=== PATIENT | male | born 1955 | race Caucasian/White ===

== ENCOUNTER 2018-10-15 10:00 | Inpatient (IN) ==
[2018-10-15] MEDS ORDERED: NS 1,000 ML IV ONE (10:18)
[2018-10-15] MEDS ORDERED: DEMEROL IV ONE ×2 (11:02→15:14)
[2018-10-15] MEDS ORDERED: PHENERGAN IV ONE ×2 (11:04→15:14)
[2018-10-15] MEDS ORDERED: SODIUM CHLORIDE 0.9% INJ ONE ×2 (11:04→15:14)
--- NOTE | 2018-10-15 11:11 | Diag Imaging Result Doc PS360 ---
EXAM: FLAT/UPRIGHT ABD/1 VIEW CHEST INDICATION: abdominal pain TECHNIQUE: 4 views COMPARISON: Chest radiograph dated 02/04/2016 FINDINGS: There are nonspecific bowel gas and stool patterns. There is patchy small bowel gas throughout the abdomen. It does not appear to be overdistended. There is nothing that would necessarily indicate obstruction. Patchy stool is seen throughout the colon. There is no evidence of large volume free abdominal gas. There is evidence of prior granulomatous disease, stable. The lungs are grossly clear. There is no discrete pleural fluid collection or pneumothorax. The cardiomediastinal silhouette and central vasculature are grossly unremarkable. IMPRESSION: Nonspecific abdomen. Electronically signed by Francisco Taylor 10/15/2018 11:09 AM
[2018-10-15 11:17] LABS: AGAP 14; ALB/GLOB RATIO 0.9; ALBUMIN 3.7 g/dL (3.5-5.0); ALKALINE PHOSPHATASE 189 U/L (32-122); BUN 17 mg/dL (8-22); CALCIUM 9.6 mg/dL (8.8-10.2); CHLORIDE 102 mmol/L (98-107); COSMO 280; ESTIMATED GFR > 60; GLUCOSE 212 mg/dL (70-104); GOT 25 U/L (10-34); GPT 33 U/L (10-44); POTASSIUM 4.6 mmol/L (3.5-5.1); SODIUM 136 mmol/L (136-145); TCO2 20 mmol/L (25-35); TOTAL BILIRUBIN 1.29 mg/dL (0.20-1.00); TOTAL PROTEIN 7.8 g/dL (6.3-8.3)
[2018-10-15 11:57] LABS: BASO# 0.04 X1000 (0.0-0.2); BASO% 0.6 % (0.0-0.8); EOS% 1.5 % (0.0-10.0); HEMATOCRIT 49.1 % (42.0-52.0); HEMOGLOBIN 17.1 g/dL (14.0-18.0); LYMPH# 1.68 X1000 (1.2-3.4); LYMPH% 24.5 % (20.5-51.1); MCH 30.6 PG (27-31); MCHC 34.8 g/dL (33-37); MCV 87.8 FL (81-99); MONO# 0.62 X1000 (0.11-0.59); MPV 12.2 FL (7.4-10.4); NEUT# 4.43 X1000 (1.4-6.5); NEUT% 64.4 % (42.2-75.2); PLT 81 X1000 (130-400); RBC 5.59 XMIL (4.7-6.1); RDW 13.8 % (11.5-14.5); WBC 6.87 X1000 (4.8-10.8)
[2018-10-15 12:18] LABS: URINE SOURCE CLEAN CATCH
[2018-10-15 12:34] LABS: BILIRUBIN URINE NEGATIVE (NEGATIVE); BLOOD URINE NEGATIVE (NEGATIVE); COLOR YELLOW; GLUCOSE URINE NEGATIVE (NEGATIVE); KETONE URINE NEGATIVE (NEGATIVE); LEUKOCYTES URINE NEGATIVE (NEGATIVE); NITRITE URINE NEGATIVE (NEGATIVE); PH URINE 6.5; PROTEIN URINE NEGATIVE (NEGATIVE); SP GRAVITY URINE 1.019; TURBIDITY URINE CLEAR (CLEAR); UROBILINOGEN URINE NORMAL (NORMAL)
[2018-10-15 12:35] LABS: UR EPITHELIAL CELLS <10 /HPF (<10); URINE BACTERIA NEGATIVE /HPF; URINE RBC <10 /HPF (<10); URINE WBC <10 /HPF (<10)
--- NOTE | 2018-10-15 14:10 | Diag Imaging Result Doc PS360 ---
EXAM: CT ABD/PELVIS W/IV CONT ONLY INDICATION: abd pain TECHNIQUE: This exam was performed using automated exposure control, adjustment of mA or kV according to patient size, and/or use of iterative reconstruction technique. COMPARISON: None. FINDINGS: There are calcified granulomata at the lung bases. The contour of the liver is diffusely nodular suggesting cirrhosis. No discrete hepatic mass is identified. The spleen is enlarged measuring up to 16.1 cm in craniocaudal length. The gallbladder is distended and there is subtle stranding at the periphery of the gallbladder. This is suspicious for cholecystitis. Please correlate with clinical exam. There is no significant biliary dilatation. No radiopaque stones are identified. The pancreas, adrenal glands, kidneys, and urinary bladder are unremarkable. The GI tract is essentially unremarkable with no focal bowel wall thickening and no evidence of bowel obstruction. There is extensive aortoiliac atherosclerotic calcification. Lumbar fusion hardware is noted. The bony structures are grossly intact. IMPRESSION: 1.Subtle inflammatory stranding around the gallbladder that is suspicious for cholecystitis. 2.Cirrhotic liver. 3.Splenomegaly. 4.Other incidental/nonacute findings detailed above. Electronically signed by Francisco Taylor 10/15/2018 2:08 PM
[2018-10-15] MEDS ORDERED: ZOSYN 3.375 GM in NS 50 ML IV ONE (14:53)
--- NOTE | 2018-10-15 15:07 | PROVIDER DOCUMENTATION ---
This chart was entered by Marge Denise Scribe, acting as scribe for Tarun Bermudez DO. HPI-Abdominal Pain/GI Problem - General Chief Complaint: Abdominal Pain Stated Complaint: KNOT ON STOMACH Time Seen by Provider: 10/15/18 10:10 Source: patient Allergies/Adverse Reactions: Patient Allergies Allergy/AdvReac Type Severity Reaction Status Date / Time No Known Allergies Allergy Verified 01/08/14 13:44 Home Medications: Home Medication List Medication Instructions Recorded Confirmed Last Taken Type Amlodipine Besylate [Norvasc] 10 mg PO DAILY 01/08/14 10/15/18 01/08/14 05:00 History Aspirin 81 mg PO DAILY 01/08/14 10/15/18 01/08/14 05:00 History Clopidogrel Bisulfate [Plavix] 75 mg PO QAM 01/08/14 10/15/18 01/08/14 05:00 History PRAVAstatin [Pravachol] 40 mg PO QHS 01/08/14 10/15/18 01/07/14 19:00 History Ramipril [Altace] 10 mg PO BID 01/08/14 01/08/14 01/08/14 05:00 History - History of Present Illness-ABD Nature of Presenting Problems: 63 y/o male presents to ED with worsening R sided abdominal pain onset 2 weeks ago. Pt reports nausea and constipation over the past 2 days. Pt states he was seen at walk in clinic recently. Pt is alert and oriented. He has a history of coronary stents several years ago. A stroke last March and several years ago Abdominal Pain Onset Location: reports: other (R sided) Pain Radiation: reports: no radiation Quality of Pain: reports: burning, stabbing Severity in ED: reports: moderate Onset/Duration: reports: other (2 weeks ago) Timing: reports: still present Activities at Onset: reports: none Exposure to sick contacts?: No Modifying Factors: worse with: movement, palpation Associated Symptoms: reports: constipation, nausea, other (R sided abdominal pain) Last BM: 2 days ago Dark Stools Present?: reports: none noticed Rectal Bleeding: reports: none Rectal Pain: reports: none Similar Symptoms Previously?: No Recently seen or treated by another doctor?: Yes (walk in clinic) Review of Systems - Adult - REVIEW OF SYSTEMS - ADULT Constitutional: denies: chills, fever Eyes: reports: no symptoms reported Ears, Nose, Mouth & Throat: reports: no symptoms reported Cardiovascular: denies: chest pain, palpitations Respiratory: denies: cough, shortness of breath Gastrointestinal: reports: abdominal pain, constipation, nausea. denies: di arrhea, vomiting Genitourinary: reports: no symptoms reported Musculoskeletal: denies: back pain, joint pain Integumentary: reports: no symptoms reported Neurological: denies: dizziness/vertigo, seizure Psychiatric: reports: no symptoms reported Endocrine: reports: no symptoms reported Hematologic/Lymphatic: reports: no symptoms reported Allergic/Immunologic: reports: no symptoms reported All Other Systems: Reviewed and Negative Past History - Adult - PAST MEDICAL HISTORY-ADULT Review of Records: reports: Old Records Reviewed, Nursing Assessment Review, Medications Reviewed Major Childhood Illnesses: reports: denies history Cardiovascular: reports: CAD, HTN, hyperlipidemia Respiratory: reports: denies history Gastrointestinal: reports: denies history Obstetrical/Gynecological: reports: denies history Genitourinary: reports: denies history Musculoskeletal: reports: denies history Neurological: reports: CVA Endocrine/Immune: reports: Diabetes Other Conditions: reports: denies history - PRIOR SURGERIES/PROCEDURES Surgical/Procedure History: reports: reviewed, not pertinent, appendectomy, back/neck (back) - PRIOR HOSPITALIZATIONS Prior Hospitalizations: reports: for other non-related - IMMUNIZATION STATUS Childhood Immunizations: See Nurse Assessment Flu Vaccine: See Nurse Assessment - FAMILY HISTORY Family History: reviewed, not pertinent - SOCIAL HISTORY Smoking: less than 1 pack/day Provider spent 3-5 mins advising pt. on dangers of tobacco.: Discussed manners to quit use, and f/u contacts for add'l counseling. Substance Use: none/never Alcohol Use Frequency: never Living Situation: family Physical Exam-General - PHYSICAL EXAM-ADULT Initial Vital Signs Reviewed: Yes - CONSTITUTIONAL General Appearance: appears well, alert, no apparent distress - EYES Eyes: PERRL/EOMI, pink conjunctivae - HEAD, EARS, NOSE, MOUTH & THROAT HENMT: normocephalic/atraumatic, moist mucous membranes, normal ENT inspection - NECK Neck: non-tender, full range of motion - RESPIRATORY Respiratory: chest non-tender, lungs clear, decreased breath sounds - CARDIOVASCULAR Cardiovascular: normal peripheral pulses, regular rate, rhythm - GASTROINTESTINAL (ABDOMEN) Abdominal Exam: normal bowel sounds, soft, tenderness (diffusely tender; worse on the R) - MUSCULOSKELETAL Back Exam: normal inspection, no CVA tenderness Extremity: normal range of motion, non-tender, normal gait - SKIN Integumentary: normal color, warm/dry - NEUROLOGIC Neurologic: grossly normal - PSYCHIATRIC Psych/Mental Status: normal mood/affect, normal thought content, normal thought process Progress - PLAN OF CARE/RESULTS Progress/Plan/Lab Results: Vital Signs - 8 hr 10/15/18 10:04 Temperature 97.6 F Pulse Rate 93 H Respiratory Rate 18 Blood Pressure 143/78 O2 Sat by Pulse Oximetry 96 Orders Category Date Time Status CT ABD/PELVIS W/IV CONT ONLY [CT] Stat Exams 10/15/18 12:36 Ordered FLAT/UPRIGHT ABD/1 VIEW CHEST [RAD] Stat Exams 10/15/18 10:16 Completed CBC WITH ELECTRONIC DIFF [HEME] Stat Lab 10/15/18 10:53 Completed COMPREHENSIVE METABOLIC PANEL [CHEM] Stat Lab 10/15/18 10:53 Completed UA NIMS W/REFLEX CULT [URINALYSIS] Stat Lab 10/15/18 10:30 Completed 0.9% Sodium Chloride Inj [Ns] 1,000 ml Med 10/15/18 10:18 Discontinued IV 999 mls/hr Meperidine [Demerol] Med 10/15/18 11:02 Discontinued 25 mg IV NOW ONE Promethazine [Phenergan] Med 10/15/18 11:04 Discontinued 12.5 mg IV NOW ONE Sodium Chloride 0.9% Med 10/15/18 11:04 Discontinued 10 ml INJ NOW ONE Laboratory Tests 10/15/18 10/15/18 10/15/18 10:30 10:53 10:53 WBC 6.87 RBC 5.59 Hgb 17.1 Hct 49.1 MCV 87.8 MCH 30.6 MCHC 34.8 RDW Std Deviation 13.8 Plt Count 81 L MPV 12.2 H Immature Gran % (Auto) 0.0 Neut % (Auto) 64.4 Lymph % (Auto) 24.5 Lane % (Auto) 9.0 Eos % (Auto) 1.5 Baso % (Auto) 0.6 Immature Gran # (Auto) 0.00 Neut # (Auto) 4.43 Lymph # (Auto) 1.68 Lane # (Auto) 0.62 H Eos # (Auto) 0.10 Baso # (Auto) 0.04 Sodium 136 Potassium 4.6 Chloride 102 Carbon Dioxide 20 L Anion Gap 14 BUN 17 Creatinine 1.0 Estimated GFR/1.73 m2 > 60 BUN/Creatinine Ratio 17 Glucose 212 H Calculated Osmolality 280 Calcium 9.6 Total Bilirubin 1.29 H AST 25 ALT 33 Alkaline Phosphatase 189 H Total Protein 7.8 Albumin 3.7 Globulin 4.1 Albumin/Globulin Ratio 0.9 Urine Source CLEAN CATCH Urine Color YELLOW Urine Turbidity CLEAR Urine pH 6.5 Ur Specific [place] 1.019 Urine Protein NEGATIVE Ur Glucose (Stick) NEGATIVE Ur Ketones (Stick) NEGATIVE Urine Blood NEGATIVE Urine Nitrite NEGATIVE Urine Bilirubin NEGATIVE Urobilinogen Dipstick NORMAL Urine Leukocytes NEGATIVE Urine WBC (Auto) <10 Urine RBC (Auto) <10 U Epithel Cells (Auto) <10 Urine Bacteria (Auto) NEGATIVE Result Diagrams: 10/15/18 10:53 10/15/18 10:53 - REASSESSMENT Reassessment #1 Time Reassessed: 12:34 Status: improving - XRAY 1 XRAY Study: Abdomen Impression: See EMR Report (FINDINGS: There are nonspecific bowel gas and stool patterns. There is patchy small bowel gas throughout the abdomen. It does not appear to be overdistended. There is nothing that would necessarily indicate obstruction. Patchy stool is seen throughout the colon. There is no evidence of large volume free abdominal gas. There is evidence of prior granulomatous disease, stable. The lungs are grossly clear. There is no discrete pleural fluid collection or pneumothorax. The cardiomediastinal silhouette and central vasculature are grossly unremarkable. IMPRESSION: Nonspecific abdomen. El ectronically signed by Francisco Taylor 10/15/2018 11:09 AM) - CT/MRI 1 CT Study: Abdomen, Pelvis Impression: Abnormal (FINDINGS: There are calcified granulomata at the lung bases. The contour of the liver is diffusely nodular suggesting cirrhosis. No discrete hepatic mass is identified. The spleen is enlarged measuring up to 16.1 cm in craniocaudal length. The gallbladder is distended and there is subtle stranding at the periphery of the gallbladder. This is suspicious for cholecystitis. Please correlate with clinical exam. There is no significant biliary dilatation. No radiopaque stones are identified. The pancreas, adrenal glands, kidneys, and urinary bladder are unremarkable. The GI tract is essentially unremarkable with no focal bowel wall thickening and no evidence of bowel obstruction. There is extensive aortoiliac atherosclerotic calcification. Lumbar fusion hardware is noted. The bony structures are grossly intact. IMPRESSION: 1.Subtle inflammatory stranding around the gallbladder that is suspicious for cholecystitis. 2.Cirrhotic liver. 3.Splenomegaly. 4.Other incidental/nonacute findings detailed above. Electronically signed by Francisco Taylor 10/15/2018 2:08 PM) - CONSULTS/PCP/HOSPITALIST Notification #1 *Consult/PCP/Hospitalist*: Dr Whitaker Time Discussed: 14:32 Reason/Comments: admit to hospitalist and consult him #2 Consult: GUILHERME Duff for Dr. Thompson Time Discussed: 15:02 Reason/Comments: cholecystitis Consult Disposition: Admit Departure - Departure Date of Disposition Decision: 10/15/18 Time of Disposition Decision: 15:03 DIAGNOSIS: Cholecystitis, Tobacco abuse disorder Disposition: ADMITTED INPATIENT 09 Certified Medical Emergency: Emergent Condition: Stable Additional Freetext Instructions: ED Follow Up Instructions: You have been treated by a care provider in the Emergency Department. These instructions are being provided to you so you can have an understanding of how to care for yourself upon discharge. Upon discharge from the Emergency Departm ent, you are responsible for making arrangements for follow-up care by a physician of your choice. Take all prescribed medications as directed. Return to the Emergency Department immediately for any new or worsening symptoms. You may call the Physician Referral phone number at [phone] to obtain a list of Physicians who are taking new patients. Referrals and Follow-Ups: None,PCP [Primary Care Provider] - Discharge Education: Steps to Quit Smoking, [id number], Cholecystitis, [id number] - Critical Care Note This patient required my direct & personal management of CC.: No Attestation - Physician/ CALOS Attestation Patient care was provided by Advanced Practice Provider:: No The physician spent face to face time with patient:: Yes Advanced Practice Provider documentation review:: Supervising physician onsite and consulted in the evaluation and care of this patient. The physician did have a face to face encounter with the patient. This chart was documented by the indicated scribe, (Marge Denise Scribe) and accurately reflects the services I performed and decisions made by me, Tarun Bermudez DO, as attested by the provider's signature.
[2018-10-15] MEDS: NS 1,000 ML IV SCH (15:59)
[2018-10-15] MEDS ORDERED: TYLENOL PO PRN (17:21)
[2018-10-15] MEDS ORDERED: SODIUM CHLORIDE 0.9% INJ SCH (17:30)
[2018-10-15] MEDS: NEXIUM IV SCH (17:51)
[2018-10-15] MEDS: DEMEROL IV PRN ×2 (17:55→21:22)
[2018-10-15 18:24] LABS: INR 1.08; PROTIME 14.9 Seconds (11.0-16.0)
[2018-10-15 18:25] LABS: PTT 37.8 Seconds (22.3-41.8)
--- NOTE | 2018-10-15 19:21 | HISTORY AND PHYSICAL ---
PRIMARY CARE PHYSICIAN: None. CHIEF COMPLAINT: Right upper quadrant abdominal pain for the past 2 weeks that has progressively worsened, and the past 2 days has had some nausea and constipation. HISTORY OF PRESENTING ILLNESS: This is a 63-year-old male who presents to the [facility] ER, with complaints of worsening right upper quadrant abdominal pain that began 2 weeks ago and has intermittently been worse. He states he has had nausea and constipation over the past 2 days. He was seen recently at a walk-in clinic and they referred him to the emergency room. Workup showed an abdomen and pelvis CT with subtle inflammatory stranding around the gallbladder that is suspicious for cholecystitis. He is being admitted for further evaluation and treatment. PAST MEDICAL HISTORY: Coronary artery disease, CVA x2, hypertension, hyperlipidemia, diabetes type 2. PAST SURGICAL HISTORY: Heart stent placement, appendectomy, and back and neck surgery. FAMILY HISTORY: Reviewed and noncontributory. SOCIAL HISTORY: He currently lives with family. He smokes a pack of cigarettes a day and has done so for the past 20 years. Denied any alcohol or illicit drug use. ALLERGIES: He has no known drug allergies. MEDICATIONS: Home medications will all be held at this time, but he takes Norvasc 10 mg p.o. daily, aspirin 81 mg p.o. daily, Plavix 75 mg p.o. q.a.m. and Pravachol 40 mg p.o. at bedtime. We need to update his ramipril dosage and verify it, but again they are all being held due to his NPO status. LABORATORY DATA: White blood cell count of 6.87, hemoglobin 17.1, hematocrit 49.1, platelets 81,000. Sodium 136, potassium 4.6, chloride 102, CO2 is 20, BUN of 17, creatinine 1, glucose 212, total bilirubin 1.29, AST 25, ALT 33, alkaline phosphatase 189. Urinalysis was negative. DIAGNOSTIC DATA: Abdomen x-ray showed a nonspecific abdomen. CT of the abdomen and pelvis showed subtle inflammatory stranding around the gallbladder suspicious for cholecystitis; cirrhotic liver; splenomegaly. REVIEW OF SYSTEMS: He denied any fever, chills, blurred vision, dizziness, chest pain, coughing or shortness of breath. He has right-sided more upper quadrant abdominal pain, nausea and constipation. Denied any burning or hurting with urination. PHYSICAL EXAMINATION: VITAL SIGNS: On arrival he had a temperature of 97.6 degrees, pulse 93, respirations 18, blood pressure 143/78, saturating 96% on room air. GENERAL: This is a 63-year-old male who is sitting up in the bedside chair with complaints of right upper quadrant abdominal pain at this time, but answers questions appropriately. HEENT: Normocephalic, atraumatic. Normal ENT inspection. Oropharynx and nares are clear. EYES: Pupils are equal, round and reactive to light and accommodation. Extraocular movements are intact. NECK: Normal inspection. Normal range of motion. LUNGS: Clear to auscultation bilaterally with equal lung expansion and chest wall movement. HEART: Regular rate and rhythm. No murmurs, rubs or gallops. ABDOMEN: Soft. There is tenderness to the right upper quadrant to palpation. Bowel sounds are present x4 quadrants. MUSCULOSKELETAL: He has 5/5 strength x4 extremities. NEUROLOGICAL: The cranial nerves 2-12 appear grossly intact. ASSESSMENT: 1. Right upper quadrant abdominal pain. 2. Acute cholecystitis. 3. Diabetes type 2. 4. Tobacco abuse. PLAN: He will be admitted to the surgical unit, placed on telemetry, held NPO. We will consult Surgery. Placed him on Zosyn 3.375 g IV q.6; normal saline at 75 mL/h; Demerol 25 mg IV q.4 hours p.r.n.; Zofran 4 mg IV q.4 hours p.r.n. We will apply SCDs for DVT prophylaxis. Recheck a CBC and BMP in the a.m. Further orders after seen by attending and by market research consultant. Dictated by GUILHERME Hudson for Keagan Thompson MD cc: GUILHERME Hudson MD
--- NOTE | 2018-10-15 19:55 | Diag Imaging Result Doc PS360 ---
EXAM: US GB < RUQ (LIMITED) INDICATION: elevated liver enzymes COMPARISON: None. FINDINGS: The gallbladder wall thickness is at the upper limit of normal measuring up to 3 mm. No gallstones are identified and there is no pericholecystic fluid identified. The common bile duct is normal in diameter. The corrosion control fitter reported a positive sonographic Rodney sign, however. The liver contour is nodular consistent with cirrhosis. No discrete hepatic mass is identified. Portal venous flow is hepatopetal. The pancreas is largely obscured by bowel gas. The visualized portions of the aorta and IVC are unremarkable. The right kidney is grossly unremarkable. IMPRESSION: 1.Cirrhotic liver. 2.No gallbladder wall thickening or pericholecystic fluid identified and no gallstones seen. The corrosion control fitter did report a positive sonographic Rodney sign, however. Electronically signed by Francisco Taylor 10/15/2018 7:53 PM
--- NOTE | 2018-10-15 20:06 | HISTORY AND PHYSICAL ---
SUBJECTIVE: The patient came in with abdominal pain and he clearly has right upper quadrant abdominal pain. He also has this kind of pooching out kind of distention in his right upper and right lower quadrant. I think that may just be hepatomegaly or ascites. In any case the patient was found to have possible cholecystitis and he was admitted for treatment. He has cirrhosis, I think it is known cirrhosis of the liver. He says he was diagnosed in April, but he has not been able to follow up and really not had any treatments. He says he was diagnosed by Dr. Galvez. ASSESSMENT AND PLAN: 1. Cholecystitis. I think that is accurate. It could be related to some ascites, although there is not really description of a large amount of ascites. I did pursue an ultrasound of his gallbladder. Dr. Whitaker may want a HIDA, but he does have very focal tenderness. Even though he has cirrhosis I think this clinically seems most consistent with cholecystitis, and he will need surgical intervention but that will be up to Dr. Whitaker of course. 2. Cirrhosis, which is felt to be steatohepatitis. He reports and he reports no drinking in 35 years so I do not think this is alcoholic. We will pursue workup for that, although steatohepatitis based on his current risk factors is the most accurate or the most statistically probable etiology for his cirrhosis. We we will continue to follow disposition pending his clinical status. This is a [id number] encounter note with Paola Pina. cc: Keagan Thompson MD
[2018-10-15] MEDS: ZOSYN 3.375 GM in NS 50 ML IV SCH (21:23)
--- NOTE | 2018-10-15 21:31 | GENERAL SURGERY CONSULTATION ---
DATE: 10/15/2018 REQUESTING PHYSICIAN: Dr. Thompson. REASON FOR CONSULTATION: Possible cholecystitis. HISTORY OF PRESENT ILLNESS: The patient is a 63-year-old male with a history of cirrhosis who presented to the emergency department with a 2-week history of abdominal pain that progressively gotten worse. He had a CT scan that showed some signs of cholecystitis. He had a ultrasound that also confirmed this, but he does have cirrhosis. Reviewing the CT scan with the radiologist, it looks like he has signs of portal hypertension with a dilated vessel in his falciform ligament and splenomegaly. He also is on Plavix and took it last 2 days ago. He has been admitted to the hospital and started on antibiotics. He has never had pain like this before prior to this 2 weeks, but it has gotten worse. PAST MEDICAL HISTORY: Includes coronary artery disease, CVA x2, hypertension, hyperlipidemia, diabetes mellitus, and cirrhosis. PAST SURGICAL HISTORY: Includes previous heart stent, appendectomy, previous back surgery. FAMILY HISTORY: Reviewed with patient, noncontributory. SOCIAL HISTORY: Current smoker. ALLERGIES: None. HOME MEDICATIONS: Reviewed. Of note, he is on Plavix. REVIEW OF SYSTEMS: A full 10-point review of systems was obtained and negative except as specified in HPI. PHYSICAL EXAMINATION: Vital Signs: The patient is currently afebrile. His vital signs stable. General: No acute distress. HEENT: Normocephalic, atraumatic. Pupils equal, round, reactive to light. Mucous membranes moist. Oropharynx benign. Neck: Supple. Trachea midline. Cardiovascular: Regular rate and rhythm. Lungs: Grossly clear. Abdomen: Soft, nondistended. Some tenderness, epigastric and right upper quadrant. No peritoneal signs. Extremities: Moves all extremities. Neurologic: Grossly intact. Skin: No signs of jaundice. Vascular: All extremities perfused. LABORATORY: White blood cell count is normal. Hematocrit is normal. Platelet count is 81. There is no left shift. INR normal. Sodium is normal. Creatinine is normal. BUN is 1.29. AST, ALT normal, alkaline phosphatase 1.89. CT scan independently reviewed and ultrasound independently reviewed and noted above. ASSESSMENT AND PLAN: A 63-year-old gentleman with possible cholecystitis in the setting of cirrhosis with portal hypertension. At this time, the patient likely has this based on clinical exam, but he is very high risk for surgery given his portal hypertension, his thrombocytopenia and his history of Plavix in the setting of cirrhosis, At this point, we agree with just antibiotics, and maybe considering surgery after we have held the Plavix for least 5 days. Might want to even increase his platelet count by transfusing him. If he seems to decline again given all these factors in this setting, might want to hold off on any kind of urgent surgical intervention and try to give him some time to resuscitate and get the Plavix out of his system. cc: Martinez Whitaker MD
[2018-10-16] MEDS: DEMEROL IV PRN ×2 (01:30→04:56)
[2018-10-16] MEDS: ZOSYN 3.375 GM in NS 50 ML IV SCH ×4 (02:26→20:26)
[2018-10-16] MEDS: NS 1,000 ML IV SCH ×2 (04:59→20:25)
[2018-10-16 06:41] LABS: BASO# 0.02 X1000 (0.0-0.2); BASO% 0.5 % (0.0-0.8); EOS# 0.13 X1000 (0.0-0.7); EOS% 3.5 % (0.0-10.0); HEMATOCRIT 41.6 % (42.0-52.0); HEMOGLOBIN 14.2 g/dL (14.0-18.0); LYMPH# 1.03 X1000 (1.2-3.4); LYMPH% 27.5 % (20.5-51.1); MCH 30.7 PG (27-31); MCHC 34.1 g/dL (33-37); MCV 89.8 FL (81-99); MONO# 0.35 X1000 (0.11-0.59); MONO% 9.4 % (1.7-9.3); MPV 11.8 FL (7.4-10.4); NEUT# 2.21 X1000 (1.4-6.5); NEUT% 59.1 % (42.2-75.2); PLT 49 X1000 (130-400); RBC 4.63 XMIL (4.7-6.1); RDW 13.6 % (11.5-14.5); WBC 3.74 X1000 (4.8-10.8)
[2018-10-16 06:54] LABS: ALB/GLOB RATIO 1.3; ALBUMIN 3.3 g/dL (3.5-5.0); DIRECT BILIRUBIN 0.4 mg/dL (0.00-0.20); TOTAL BILIRUBIN 1.44 mg/dL (0.20-1.00); TOTAL PROTEIN 5.9 g/dL (6.3-8.3)
[2018-10-16 06:57] LABS: AGAP 12; BUN 13 mg/dL (8-22); CALCIUM 8.6 mg/dL (8.8-10.2); CHLORIDE 103 mmol/L (98-107); COSMO 280; CREATININE 0.9 mg/dL (0.7-1.2); ESTIMATED GFR > 60; GLUCOSE 166 mg/dL (70-104); POTASSIUM 4.5 mmol/L (3.5-5.1); SODIUM 138 mmol/L (136-145); TCO2 23 mmol/L (25-35)
--- NOTE | 2018-10-16 07:02 | GENERAL SURGERY PROGRESS NOTE ---
DATE: 10/16/2018 SUBJECTIVE: Patient is still having some abdominal pain. OBJECTIVE: Vital signs: Patient is currently afebrile. His vital signs are stable. General: No acute distress, but appears uncomfortable, male, looks stated age. HEENT: Normocephalic, atraumatic. Pupils equal, round, reactive to light. Mucous membranes moist. Oropharynx benign. Neck: Supple. Trachea midline. Cardiovascular: Regular rate and rhythm. Lungs: Grossly clear. Abdomen: Soft, some tenderness to the epigastric and right upper quadrant. No peritoneal signs. Extremities: Moves all extremities. Neurologic: Grossly intact. Skin: No signs of jaundice. Vascular: All extremities perfused. LABORATORY: None this morning as of yet. ASSESSMENT AND PLAN: A 63-year-old with cholecystitis in the setting of cirrhosis with portal hypertension, thrombocytopenia, and Plavix usage. 1. Cholecystitis. At this time, his constellation of comorbidities and medications make it a little prohibitive at this point for surgical intervention. This was discussed with Dr. Thompson. We will keep him on IV antibiotics and see how we can do. I will be gone during the week next week, but will be here on Wednesday, but may have 1 of my partners intervene surgically, if needed. 2. Multiple medical comorbidities. Currently being managed by the hospitalist service. cc: Martinez Whitaker MD MTDRoselia
[2018-10-16] MEDS: ZOFRAN IV PRN ×2 (09:45→16:34)
[2018-10-16] MEDS: DILAUDID IV PRN ×5 (09:45→23:58)
[2018-10-16] MEDS: NEXIUM IV SCH (16:37)
--- NOTE | 2018-10-16 17:38 | PROGRESS NOTE ---
DATE: 10/16/2018 SUBJECTIVE: Patient has no major complaints. Pain is better. He feels like his swelling and pain is better since we started antibiotics, although he still has some difficulty with right upper quadrant pain. OBJECTIVE: Vital Signs: Blood pressure is 144/81, heart rate of 85, respiratory rate 20, temperature 98.6 degrees, 97% on room air. Cardiovascular: Regular rate and rhythm. Pulmonary: Bilateral breath sounds. Clear to auscultation. GI: Soft, nontender, nondistended. Bowel sounds are positive. LABORATORY DATA: White count is 3.7, hemoglobin and hematocrit are 14 and 41, platelets are down to 49,000 from 81,000 yesterday. T bilirubin 1.44 which interestingly most of it is indirect. Albumin is 3.3. PROBLEM LIST: 1. Possible cholecystitis. Dr. Whitaker is following. He feels like he is a little bit higher risk because of the cirrhosis. He also is thrombocytopenic. He is not coagulopathic. His INR is okay, but he is thrombocytopenic and may need transfusion. We are going to progress with surgery. I have ordered a HIDA scan for tomorrow, but we will continue to monitor. Dr. Whitaker wants to wait a couple days because of the that he has been on aspirin and Plavix. The patient says he stopped those a couple days before admission because I think he said he had ran out. We can always do platelet function studies, I guess we can order those. He is still symptomatic as far as pain, but it is not completely clear that is a condition. 2. Cirrhosis. He seems to be pretty well compensated except for the thrombocytopenia. But, there is not a lot of ascites, he is not coagulopathic, and his INR is normal. So at this point, he is at best Child's class A, which does increase his surgical risk but it is not, again, completely prohibitive to do surgery. Of course, defer to the surgeon about when they feel comfortable for that. I do agree waiting because he has been on aspirin and Plavix will be helpful, but we will continue to follow closely. cc: Keagan Thompson MD
[2018-10-16 18:06] LABS: AGAP 11; ALB/GLOB RATIO 1.1; ALBUMIN 3.3 g/dL (3.5-5.0); ALKALINE PHOSPHATASE 117 U/L (32-122); BUN 10 mg/dL (8-22); CALCIUM 8.2 mg/dL (8.8-10.2); CHLORIDE 106 mmol/L (98-107); COSMO 281; CREATININE 0.9 mg/dL (0.7-1.2); ESTIMATED GFR > 60; GLUCOSE 142 mg/dL (70-104); GOT 22 U/L (10-34); GPT 22 U/L (10-44); POTASSIUM 4.3 mmol/L (3.5-5.1); SODIUM 140 mmol/L (136-145); TCO2 23 mmol/L (25-35); TOTAL BILIRUBIN 1.27 mg/dL (0.20-1.00); TOTAL PROTEIN 6.4 g/dL (6.3-8.3)
[2018-10-16] MEDS: PRAVACHOL PO SCH (20:26)
[2018-10-16] MEDS: ALTACE PO SCH (20:27)
[2018-10-17] MEDS: ZOSYN 3.375 GM in NS 50 ML IV SCH ×4 (03:37→22:01)
[2018-10-17 06:24] LABS: BASO# 0.02 X1000 (0.0-0.2); BASO% 0.6 % (0.0-0.8); EOS# 0.09 X1000 (0.0-0.7); EOS% 2.5 % (0.0-10.0); HEMATOCRIT 39.8 % (42.0-52.0); HEMOGLOBIN 13.6 g/dL (14.0-18.0); LYMPH# 0.85 X1000 (1.2-3.4); LYMPH% 23.6 % (20.5-51.1); MCH 30.7 PG (27-31); MCHC 34.2 g/dL (33-37); MCV 89.8 FL (81-99); MONO# 0.33 X1000 (0.11-0.59); MONO% 9.2 % (1.7-9.3); MPV 12.5 FL (7.4-10.4); NEUT# 2.31 X1000 (1.4-6.5); NEUT% 64.1 % (42.2-75.2); PLT 48 X1000 (130-400); RBC 4.43 XMIL (4.7-6.1); RDW 13.2 % (11.5-14.5)
[2018-10-17] MEDS: PRILOSEC PO SCH (06:24)
--- NOTE | 2018-10-17 07:03 | EKG Report ---
Test Performed on : 10/15/2018 6:20:41 PM Test Reason : preop Blood Pressure : / mmHG Vent. Rate : 085 BPM Atrial Rate : 085 BPM P-R Int : 240 ms QRS Dur : 084 ms QT Int : 408 ms P-R-T Axes : 076 057 068 degrees QTc Int : 485 ms Sinus rhythm. with 1st degree AV block. with occasional premature ventricular complexes. and prematur e atrial complexes. Prolonged QT Abnormal ECG No previous ECGs available Confirmed by Walker RUIZ, Rasheed Alford ([id number]) on 10/17/2018 12:48:42 PM
--- NOTE | 2018-10-17 07:22 | GENERAL SURGERY PROGRESS NOTE ---
DATE: 10/17/2018 SUBJECTIVE: The patient seems to be doing okay. He still has some abdominal pain, but otherwise is about the same. OBJECTIVE: Vital Signs: The patient is currently afebrile. His vital signs are stable. General: No acute distress. HEENT: Normocephalic, atraumatic. Pupils equal, round, reactive to light. Mucous membranes moist. Oropharynx benign. Neck: Supple. Trachea midline. Cardiovascular: Regular rate and rhythm. Lungs: Grossly clear. Abdomen: Soft, tender to palpation in right upper quadrant. Extremities: Moves all extremities. Neurologic: Grossly intact. Skin: No signs of jaundice. Vascular: All extremities perfused. LABORATORY DATA: None this morning as of yet. ASSESSMENT AND PLAN: A 63-year-old gentleman with cholecystitis in the setting of cirrhosis, portal hypertension, thrombocytopenia, and Plavix usage. Cholecystitis: At this time, continue current treatment. We will have my partners take over the care of him. It should be noted that his platelet count has gone down to 49 yesterday. We will again continue with antibiotics for right now. cc: Martinez Whitaker MD
[2018-10-17 08:21] LABS: HEPATITIS PROFILE ACUTE SEE COMMENTS
--- NOTE | 2018-10-17 08:59 | Diag Imaging Result Doc PS360 ---
EXAM: HIDA SCAN W/ EJECTION FRACTION HISTORY: evaluate for cholecystitis TECHNIQUE: Nuclear medicine HIDA scan with gallbladder ejection fraction COMPARISON: None. FINDINGS: 5.2 mCi Choletec administered. There is normal uptake within the liver. Normal filling of the gallbladder. Normal emptying into the small bowel. Ensure was given to determine the gallbladder ejection fraction. This is calculated to be 55% at 60 minutes. IMPRESSION: Normal HIDA scan with a normal gallbladder ejection fraction. Electronically signed by Emory Wood 10/17/2018 8:57 AM
[2018-10-17] MEDS: DILAUDID IV PRN ×5 (09:10→21:59)
[2018-10-17] MEDS: ALTACE PO SCH ×2 (09:10→22:09)
[2018-10-17] MEDS: NORVASC PO SCH (09:10)
[2018-10-17] MEDS: ZOFRAN IV PRN (09:10)
[2018-10-17] MEDS: NS 1,000 ML IV SCH (15:24)
[2018-10-17] MEDS: PRAVACHOL PO SCH (22:09)
--- NOTE | 2018-10-17 22:10 | PROGRESS NOTE ---
DATE: 10/17/2018 SUBJECTIVE: The patient has no major complaints. He still has some pain, but overall improved. OBJECTIVE: Vital Signs: Blood pressure is 133/78, heart rate 79, respiratory rate 17, temperature 98 degrees, and oxygen saturation 97% on room air. Cardiovascular: Regular rate and rhythm. Pulmonary: Bilateral breath sounds, clear to auscultation. GI: Soft, nondistended. Bowel sounds are positive. He still has some tenderness to right upper quadrant. LABS: White count 3.6, hemoglobin and hematocrit 13 and 39, platelets are down to 48,000. Platelet function test of 126, which is normal, so I think he is doing okay there. PROBLEM LIST: 1. Right upper quadrant pain, which is possible cholecystitis. Symptomatically, he is there, but his HIDA is normal and his ultrasound looked okay. I do not have a clear explanation for his pain, but his gallbladder does look enlarged. Surgery is following. We will decide about cholecystectomy. He has been off his aspirin and Plavix and his platelet function test is normal, so I think he could be due for surgery if they want to pursue. 2. Cirrhosis, seems to be compensated. Continue to follow. 3. Thrombocytopenia. Obviously, he will need platelet infusion if they proceed with surgery. We will defer to them concerning that. CT scan done during the earlier admission did not show any other right lower lobe airspace disease. cc: Keagan Thompson MD
[2018-10-18] MEDS: DILAUDID IV PRN ×6 (01:08→22:17)
[2018-10-18] MEDS: ZOSYN 3.375 GM in NS 50 ML IV SCH ×5 (06:29→22:15)
[2018-10-18 06:34] LABS: BASO# 0.02 X1000 (0.0-0.2); BASO% 0.5 % (0.0-0.8); EOS# 0.17 X1000 (0.0-0.7); EOS% 3.8 % (0.0-10.0); HEMATOCRIT 40.4 % (42.0-52.0); LYMPH# 1.07 X1000 (1.2-3.4); LYMPH% 24.2 % (20.5-51.1); MCH 30.7 PG (27-31); MCHC 34.7 g/dL (33-37); MCV 88.6 FL (81-99); MONO# 0.41 X1000 (0.11-0.59); MONO% 9.3 % (1.7-9.3); MPV 11.6 FL (7.4-10.4); NEUT# 2.75 X1000 (1.4-6.5); NEUT% 62.2 % (42.2-75.2); PLT 53 X1000 (130-400); RBC 4.56 XMIL (4.7-6.1); RDW 13.2 % (11.5-14.5); WBC 4.42 X1000 (4.8-10.8)
[2018-10-18 06:49] LABS: AGAP 11; ALB/GLOB RATIO 0.9; ALBUMIN 3.2 g/dL (3.5-5.0); ALKALINE PHOSPHATASE 109 U/L (32-122); BUN 9 mg/dL (8-22); CALCIUM 8.3 mg/dL (8.8-10.2); CHLORIDE 102 mmol/L (98-107); COSMO 277; CREATININE 0.9 mg/dL (0.7-1.2); ESTIMATED GFR > 60; GLUCOSE 147 mg/dL (70-104); GOT 22 U/L (10-34); GPT 18 U/L (10-44); POTASSIUM 4.4 mmol/L (3.5-5.1); SODIUM 138 mmol/L (136-145); TCO2 25 mmol/L (25-35); TOTAL BILIRUBIN 1.46 mg/dL (0.20-1.00); TOTAL PROTEIN 6.6 g/dL (6.3-8.3)
[2018-10-18] MEDS: NORVASC PO SCH (08:24)
[2018-10-18] MEDS: PRILOSEC PO SCH (08:24)
[2018-10-18] MEDS: ALTACE PO SCH ×2 (08:24→22:16)
--- NOTE | 2018-10-18 18:44 | PROGRESS NOTE ---
DATE: 10/18/2018 SUBJECTIVE: The patient complains of right lower quadrant abdominal pain as well as some epigastric pain. OBJECTIVE: Vital Signs: Temperature 98 degrees, blood pressure 128/79, heart rate 76, respirations 16, O2 saturation is 94% on room air. General: This is an elderly male, lying in bed, in no acute distress. Heart: S1, S2 normal. Regular rate and rhythm. Lungs: Clear to auscultation bilaterally. No wheezing. No rales. No rhonchi. Abdomen: Positive bowel sounds. Soft. Right lower quadrant tenderness. Extremities: No edema. No cyanosis. Neurologic: The patient is alert and oriented x4. LABS: White blood cell count 4.4, hemoglobin 14, hematocrit 40, platelets 53,000. Sodium 138, potassium 4.4, chloride 102, CO2 25, BUN 9, creatinine 0.9, glucose 147, total bilirubin 1.46, AST 22, ALT 18, alkaline phosphatase 109. ASSESSMENT AND PLAN: 1. Abdominal pain. The patient continues to complain of right upper quadrant abdominal pain. His HIDA scan was noted to be normal. We will consult GI. The patient states that he has never had an endoscopy done. 2. Liver cirrhosis. Stable. Will await further recommendations from GI. 3. Cholecystitis. General Surgery is following. Continue with antibiotic therapy. 4. Obesity. Aware. 5. Hypertension. Continue on Norvasc and Altace. cc: Rosio De La Torre MD MTDD
--- NOTE | 2018-10-18 20:06 | GENERAL SURGERY PROGRESS NOTE ---
DATE: 10/18/2018 SUBJECTIVE: The patient continues to report right upper quadrant pain. However, it is not as bad as when he was admitted over the weekend. When he drinks liquids it seems to be okay, but when he eats it really hurts. OBJECTIVE: Vital Signs: He is afebrile. Vital signs are stable. General: He is awake, alert, and oriented x3. No acute distress. Gastrointestinal: Abdomen soft, nondistended, mildly tender on the right side. No rebound or guarding. LABORATORY: White blood cell count 4.4, hemoglobin 14. Electrolytes reviewed and notable for total bilirubin total bilirubin 1.5, AST 22, ALT 18, alkaline phosphatase 109. IMAGING: His HIDA scan yesterday was negative for acute cholecystitis and had a normal ejection fraction. His abdominal ultrasound from several days ago showed no gallbladder wall thickening, pericholecystic fluid or gallstones. His abdominal CT scan from 10/15/2018 showed a distended gallbladder with subtle inflammatory stranding around it, but otherwise there were no stones. ASSESSMENT AND PLAN: A 63-year-old male with right upper quadrant pain and questionable acalculous cholecystitis. He does have cirrhosis. Gastroenterology has been consulted and I believe are planning an EGD and colonoscopy in the near future. At this point, I will continue nonoperative treatment with antibiotics and supportive care. If he improves over the next couple days, then I will discharge him home with close followup with Dr. Whitaker and Gastroenterology. cc: Eriberto Nolan MD
[2018-10-18] MEDS: PRAVACHOL PO SCH (22:16)
[2018-10-19] MEDS: DILAUDID IV PRN ×7 (01:45→22:19)
[2018-10-19] MEDS: ZOSYN 3.375 GM in NS 50 ML IV SCH ×4 (03:49→22:20)
[2018-10-19 06:31] LABS: INR 1.18; PROTIME 15.9 Seconds (11.0-16.0)
[2018-10-19 06:36] LABS: HEMATOCRIT 41.3 % (42.0-52.0); HEMOGLOBIN 14.5 g/dL (14.0-18.0); MCHC 35.1 g/dL (33-37); MCV 88.4 FL (81-99); MPV 11.8 FL (7.4-10.4); RBC 4.67 XMIL (4.7-6.1); RDW 13.4 % (11.5-14.5); WBC 4.72 X1000 (4.8-10.8)
[2018-10-19] MEDS: PRILOSEC PO SCH (06:46)
[2018-10-19 07:19] LABS: AGAP 12; ALBUMIN 3.3 g/dL (3.5-5.0); ALKALINE PHOSPHATASE 105 U/L (32-122); BUN 6 mg/dL (8-22); CALCIUM 8.6 mg/dL (8.8-10.2); CHLORIDE 102 mmol/L (98-107); COSMO 275; CREATININE 0.9 mg/dL (0.7-1.2); ESTIMATED GFR > 60; GLUCOSE 170 mg/dL (70-104); GOT 20 U/L (10-34); GPT 16 U/L (10-44); POTASSIUM 3.7 mmol/L (3.5-5.1); SODIUM 137 mmol/L (136-145); TCO2 23 mmol/L (25-35); TOTAL BILIRUBIN 1.77 mg/dL (0.20-1.00); TOTAL PROTEIN 6.5 g/dL (6.3-8.3)
[2018-10-19] MEDS: NORVASC PO SCH (10:33)
[2018-10-19] MEDS: ALTACE PO SCH ×2 (10:33→22:18)
[2018-10-19] MEDS: LACTULOSE PO SCH ×2 (11:56→22:18)
[2018-10-19] MEDS: MIRALAX PO SCH ×2 (11:56→22:19)
[2018-10-19] MEDS: COLACE PO SCH ×2 (11:56→22:19)
--- NOTE | 2018-10-19 15:14 | Diag Imaging Result Doc PS360 ---
EXAM: ABDOMEN FLAT/UPRIGHT 10/19/2018 HISTORY: constipation TECHNIQUE: Flat and upright abdomen COMMENT: There is gas and stool throughout the colon. The small bowel is not distended. The stomach is not distended and there is no evidence of organomegaly or mass. There has been posterior lateral fusion at L5-S1. IMPRESSION: Constipation. Electronically signed by Lakhwinder Small 10/19/2018 3:12 PM
[2018-10-19] MEDS ORDERED: DULCOLAX PR ONE (15:18)
--- NOTE | 2018-10-19 17:58 | GENERAL SURGERY PROGRESS NOTE ---
DATE: 10/19/2018 SUBJECTIVE: The patient reports right upper abdominal pain especially after eating. He is okay with liquids. OBJECTIVE: Vital signs: He is afebrile. Vital signs are stable. General: He is awake, alert, no acute distress. GI: Soft. Tender in the right upper quadrant. No rebound or guarding. LABORATORY: White cell count was 4.7, hemoglobin 14.5, hematocrit 41, platelet count 63,000. Electrolytes reviewed and notable for total bilirubin of 1.8. IMAGING: Abdominal x-ray today was reviewed by me. The official report is pending. On my view there is a nonobstructing bowel-gas pattern. There is some stool in the right upper quadrant. ASSESSMENT AND PLAN: This is a 63-year-old male with right-sided abdominal pain and questionable cholecystitis, although his ultrasound and HIDA scan were negative. The believe the plan is for Dr. García or another stained glass installer to do an EGD tomorrow. He may need a good bowel prep and clean out his stool. If he continues to be sick after a negative EGD and a good bowel prep, then cholecystectomy would be his next step. cc: Eriberto Nolan MD
[2018-10-19] MEDS ORDERED: FLEET MINERAL OIL ENEMA PR ONE (18:25)
--- NOTE | 2018-10-19 18:48 | PROGRESS NOTE ---
DATE: 10/19/2018 SUBJECTIVE: The patient continues to complain of abdominal pain. OBJECTIVE: Vital Signs: Temperature 98.3 degrees, blood pressure 130/47, heart rate 64, respirations 14, O2 saturation is 99% on room air. General: This is a morbidly obese male sitting at the edge of the bed in no acute distress. Heart: S1 and S2 normal. Regular rate and rhythm. Lungs: Clear to auscultation bilaterally. Abdomen: Positive bowel sounds. Soft. Diffuse tenderness. Extremities: No edema. No cyanosis. Neurologic: The patient is alert and oriented x3. LABORATORY DATA: White blood cell count 4.7, hemoglobin 14, hematocrit 41, platelets 63,000. Sodium 137, potassium 3.7, chloride 102, BUN 6, creatinine 0.9 glucose 170, total bilirubin 1.7. IMAGING: Abdominal x-ray reveals constipation. ASSESSMENT AND PLAN: 1. Abdominal pain. The patient will be undergoing endoscopy tomorrow. We will continue with omeprazole and await the results of this diagnostic study. 2. Cholecystitis. We will continue to monitor closely. General Surgery is following. Continue with antibiotic therapy. 3. Liver cirrhosis. Gastroenterology is following. Further workup to be performed as outpatient. 4. Constipation. The patient has been started on laxative therapy. 5. Obesity. Aware. The patient has been counseled about weight loss. 6. Hypertension. Controlled. 7. Thrombocytopenia. Stable. cc: Rosio De La Torre MD
--- NOTE | 2018-10-19 19:43 | GASTROENTEROLOGY CONSULTATION ---
DATE: 10/19/2018 REASON FOR CONSULTATION: RLQ pain HPI: Mr. Lakhwinder Felix is a 63 year old man with cryptogenic cirrhosis, IDDM2, prior CVAx2 with residual RLE weakness, chronic back pain, HTN, HLD, CAD s/p stents who presented with several weeks of RUQ burning pain radiating to epigastrum and RLQ. Eating solid food made his pain worse. He reports having a fever up to 100 at home. He admits to having new onset constipation during this peroid without a bowel movement for 5 days. +nausea. He denies vomiting, CP, SOB, GERD, rectal bleeding, melena. He has been taking ibuprofen for 3-4 days to treat his pain. His constipation was relieved with OTC stool softener. Workup with CT A/P was suspicious for acute cholecystitis; however, follow-up abdominal US and HIDA were normal. ROS: as per HPI, otherwise 12 point ROS negative PAST MEDICAL HISTORY: Coronary artery disease, CVA x2, hypertension, hyperlipidemia, diabetes type 2. PAST SURGICAL HISTORY: Heart stent placement, appendectomy, and back and neck surgery. FAMILY HISTORY: Reviewed and noncontributory. No Fhx of GI diseases SOCIAL HISTORY: He currently lives with family. He smokes a pack of cigarettes a day and has done so for the past 20 years. Denied any alcohol or illicit drug use. ALLERGIES: He has no known drug allergies. HOME MEDICATIONS: Norvasc 10 mg p.o. daily, aspirin 81 mg p.o. daily, Plavix 75 mg p.o. q.a.m. and Pravachol 40 mg p.o. at bedtime, ramipril PE: VS: 98.3 HR 74 RR 20 BP 125/61 O2 95% RA GEN: awake, alert, NAD HEENT: anicteric, MMM NECK: supple, no jvd PULM: CTAB, no wheezing CV: RRR, no murmurs ABD: soft, obese, TTP lower abdomen, RUQ, no rebound or guarding EXT: no cce NEURO: nonfocal LABORATORY DATA: White blood cell count of 6.87, hemoglobin 17.1, hematocrit 49.1, platelets 81,000. Sodium 136, potassium 4.6, chloride 102, CO2 is 20, BUN of 17, creatinine 1, glucose 212, total bilirubin 1.29, AST 25, ALT 33, alkaline phosphatase 189. Urinalysis was negative. Chronic liver disease workup negative Imaging: EXAM: ABDOMEN FLAT/UPRIGHT 10/19/2018 HISTORY: constipation TECHNIQUE: Flat and upright abdomen COMMENT: There is gas and stool throughout the colon. The small bowel is not distended. The stomach is not distended and there is no evidence of organomegaly or mass. There has been posterior lateral fusion at L5-S1. IMPRESSION: Constipation. Normal HIDA scan with a normal gallbladder ejection fraction. Abdominal US IMPRESSION: 1.Cirrhotic liver. 2.No gallbladder wall thickening or pericholecystic fluid identified and no gallstones seen. The barrel turner did report a positive sonographic Rodney sign, however. CT of the abdomen and pelvis showed subtle inflammatory stranding around the gallbladder suspicious for cholecystitis; cirrhotic liver; splenomegaly. A/P: Mr. Lakhwinder Felix is a 63 year old man with cryptogenic cirrhosis, IDDM2, prior CVAx2 with residual RLE weakness, chronic back pain, HTN, HLD, CAD s/p stents who presented with several weeks of RUQ burning pain radiating to epigastrum and RLQ. Initial CT was concerning for acute cholecystitis. US and HIDA were negative. DDx includes GERD, PUD, constipation. Will plan for diagnostic EGD tomorrow. NPO after MN. PPI daily. Bowel regimen for constipation. Encourage smoking cessation. Antiemetics as needed for nausea. Surgery following, appreciate recs Will follow with you. Call with questions. GEORGE
[2018-10-19] MEDS: SENOKOT PO SCH (22:19)
[2018-10-19] MEDS: PRAVACHOL PO SCH (22:19)
[2018-10-20] MEDS: DILAUDID IV PRN ×6 (02:39→21:56)
[2018-10-20] MEDS: ZOSYN 3.375 GM in NS 50 ML IV SCH ×5 (04:21→21:58)
[2018-10-20 06:09] LABS: BASO# 0.02 X1000 (0.0-0.2); BASO% 0.3 % (0.0-0.8); EOS# 0.13 X1000 (0.0-0.7); EOS% 2.2 % (0.0-10.0); HEMATOCRIT 42.7 % (42.0-52.0); HEMOGLOBIN 15.2 g/dL (14.0-18.0); LYMPH# 1.18 X1000 (1.2-3.4); LYMPH% 19.8 % (20.5-51.1); MCH 30.9 PG (27-31); MCHC 35.6 g/dL (33-37); MCV 86.8 FL (81-99); MONO% 10.1 % (1.7-9.3); NEUT# 4.04 X1000 (1.4-6.5); NEUT% 67.6 % (42.2-75.2); PLT 82 X1000 (130-400); RBC 4.92 XMIL (4.7-6.1); RDW 13.5 % (11.5-14.5); WBC 5.97 X1000 (4.8-10.8)
[2018-10-20 06:24] LABS: AGAP 10; ALBUMIN 3.7 g/dL (3.5-5.0); ALKALINE PHOSPHATASE 125 U/L (32-122); BUN 6 mg/dL (8-22); CALCIUM 8.5 mg/dL (8.8-10.2); CHLORIDE 102 mmol/L (98-107); COSMO 273; CREATININE 0.8 mg/dL (0.7-1.2); ESTIMATED GFR > 60; GLUCOSE 154 mg/dL (70-104); GOT 24 U/L (10-34); GPT 18 U/L (10-44); SODIUM 136 mmol/L (136-145); TCO2 24 mmol/L (25-35); TOTAL BILIRUBIN 1.62 mg/dL (0.20-1.00); TOTAL PROTEIN 7.5 g/dL (6.3-8.3)
[2018-10-20] MEDS: PRILOSEC PO SCH (06:30)
[2018-10-20] MEDS: SENOKOT PO SCH ×3 (08:08→21:58)
[2018-10-20] MEDS: COLACE PO SCH ×2 (08:08→19:47)
[2018-10-20] MEDS: ALTACE PO SCH ×3 (08:09→21:58)
[2018-10-20] MEDS: NORVASC PO SCH (08:09)
[2018-10-20] MEDS: LACTULOSE PO SCH ×2 (08:10→19:48)
[2018-10-20] MEDS: MIRALAX PO SCH ×2 (08:10→19:48)
[2018-10-20] MEDS ORDERED: DIPRIVAN 1% ONE (10:17)
[2018-10-20] MEDS ORDERED: XYLOCAINE-MPF 2% ONE (10:18)
[2018-10-20] MEDS ORDERED: LABETALOL (DOSE) ONE (10:19)
[2018-10-20] MEDS ORDERED: SODIUM CHLORIDE 0.9% 0 ML ONE (11:07)
[2018-10-20] MEDS ORDERED: NEO-SYNEPHRINE ONE (11:07)
[2018-10-20 13:23] LABS: HEPATITIS PROFILE ACUTE SEE COMMENTS
--- NOTE | 2018-10-20 14:03 | PROGRESS NOTE ---
DATE: 10/20/2018 SUBJECTIVE: The patient is resting comfortably. He is scheduled for endoscopy today. He continues to complain of right lower and upper quadrant abdominal pain. OBJECTIVE: Vital Signs: Temperature 98 degrees, blood pressure 113/64, heart rate 72, respirations 14, and O2 saturations 98% on room air. General: This is a chronically ill- appearing elderly male lying in bed in no acute distress. Heart: S1, S2 normal. Regular rate and rhythm. Lungs: Clear to auscultation bilaterally. Abdomen: Positive bowel sounds. Soft. Positive for tenderness in the right upper and lower quadrants. Extremities: No edema. No cyanosis. Neurologic: The patient is alert and oriented x4. LABORATORY: White blood cell count 5.9, hemoglobin 15, hematocrit 42, and platelets 82,000. Sodium 136, potassium 4, chloride 102, CO2 24, BUN 6, creatinine 0.8, and glucose 154. ASSESSMENT AND PLAN: 1. Abdominal pain. The patient is scheduled for endoscopy today. We will await the results. 2. Biliary dyskinesia. Aware. 3. Liver cirrhosis. Aware. Management as per GI. 4. Hypertension. Continue on Norvasc. 5. Constipation. The patient states that he had multiple bowel movements this morning. 6. Chronic thrombocytopenia. Stable. cc: Rosio De La Torre MD
[2018-10-20] MEDS: MYCOSTATIN SUSP PO SCH ×3 (15:19→19:49)
[2018-10-20] MEDS: CARAFATE LIQUID PO SCH ×2 (15:20→19:28)
--- NOTE | 2018-10-20 16:07 | OPERATIVE NOTE ---
PROCEDURE DATE: 10/20/2018 TITLE OF OPERATION: Esophagogastroduodenoscopy with gastric random biopsy. PREOPERATIVE DIAGNOSES: 1. Abdominal pain in the right upper quadrant and epigastrium, which worsens with eating. 2. Known h/o Cirrhosis for 7 years, unclear etiology, likely from fatty liver, according to the patient. 3. Thrombocytopenia. 4. Question of cholecystitis, being monitored by the surgery team. POSTOPERATIVE DIAGNOSES: 1. Candidal esophagitis in the proximal and distal esophagus. 2. Z-line was visualized at 45 cm. 3. Evidence of portal hypertensive gastropathy. 4. Erosive Gastritis in the body and antrum; Normal fundus, cardia, incisura on retroflexion. 5. Normal duodenal bulb and second portion. ESTIMATED BLOOD LOSS: Minimal. COMPLICATIONS: None. ANESTHESIA: Monitored anesthesia per the anesthesiologist. SPECIMENS: Random gastric biopsies. DESCRIPTION OF PROCEDURE: After informed consent, the patient explained the risks, benefits, indications, and alternatives to the procedure, the patient was prepared for an EGD. The patient was brought to the OR. He was turned on the left lateral position. A bite block was placed in patient's mouth. After adequate monitored anesthesia care, the upper scope was introduced through the oral orifice and traversed all the way to the second portion of duodenum. The esophagus showed evidence of patchy white exudate attached to the proximal and distal esophagus, suggesting candidal esophagitis. The Z-line was visualized at 45 cm. The stomach showed evidence of erythema, friability, erosions suggesting erosive gastritis. The mucosa of the gastric body and fundus also showed evidence of snake skin appearance, chronic mucosal edema, suggesting portal hypertensive gastropathy. The patient does have a known history of cirrhosis for the last seven years. Retroflexion revealed normal fundus, cardia, and incisura. No evidence of any gastric varices noted. The duodenal bulb and second portion of the duodenum appeared normal. The air was aspirated. The scope was withdrawn. The patient tolerated the procedure well any gastric varices noted the duodenal bulb 2nd portion revealed renal appeared normal. The air was withdrawn. The patient tolerated the procedure well and was monitored in the OR in stable condition. RECOMMENDATIONS: 1. We will increase the patient's omeprazole to 40 mg twice daily for 3 months and then cut it down to once daily after that.Follow GERD lifestyle changes. 2. We will start the patient on Carafate 1 g every 6 hours for 6 weeks. 3. We will start the patient on Diflucan 5 mL 4 times daily for 2 weeks. 4. The patient will follow up 4 weeks from discharge to discuss the biopsy results. 5. We will start the patient on a full liquid diet and advance as tolerated. 6. The patient has a history of liver cirrhosis. We will check chronic liver disease workup. 7. Further recommendations pending hospital course. Please call us with any further questions. Thank you for allowing us to participate in the care of the patient. cc: MD Keagan Borges MD MTDD
[2018-10-20] MEDS: PRAVACHOL PO SCH (19:47)
[2018-10-21] MEDS: LACTULOSE PO SCH (00:01)
[2018-10-21] MEDS: MIRALAX PO SCH ×3 (00:01→09:46)
[2018-10-21] MEDS: MYCOSTATIN SUSP PO SCH ×2 (00:01→09:28)
[2018-10-21] MEDS: PRAVACHOL PO SCH (00:02)
[2018-10-21] MEDS: CARAFATE LIQUID PO SCH ×2 (00:02→06:21)
[2018-10-21] MEDS: HUMULIN R SUBQ SCH ×2 (00:46→06:53)
--- NOTE | 2018-10-21 02:22 | GENERAL SURGERY PROGRESS NOTE ---
DATE: 10/20/2018 SUBJECTIVE: The patient continues to have some right-sided abdominal pain. He has had several bowel movements. The pain has not really changed much. He continues to be able to tolerate a liquid diet. OBJECTIVE: He is afebrile. Vital signs are stable.General: He is awake, alert, oriented x3. No acute distress. Abdomen: Soft, mild tenderness in the right side of the abdomen. No rebound or guarding. LABORATORY: CBC: White blood cell count 5.9. Total bilirubin 1.6. OTHER DIAGNOSTIC DATA: EGD was performed today and, apparently, showed esophagitis, portal hypertensive gastropathy, erosive gastritis. ASSESSMENT AND PLAN: A 63-year-old male with gastritis, portal hypertension, cirrhosis, and esophagitis. He has right-sided abdominal pain of unclear etiology. The HIDA scan and ultrasound were negative. I wonder if this is more of an abdominal strain. In any case, I would treat his esophagitis and gastritis per Gastroenterology, and have him follow up with Dr. Whitaker in the future for consideration of future cholecystectomy. cc: Eriberto Nolan MD
[2018-10-21] MEDS: ZOSYN 3.375 GM in NS 50 ML IV SCH (04:17)
[2018-10-21] MEDS: DILAUDID IV PRN (05:00)
[2018-10-21] MEDS: PRILOSEC PO SCH (06:21)
[2018-10-21 06:45] LABS: HEMOGLOBIN A1C 6.6 % (4.8-6.0)
[2018-10-21 07:31] VITALS: BP 110/50
[2018-10-21] MEDS ORDERED: DIFLUCAN PO ONE (09:24)
[2018-10-21] MEDS: ALTACE PO SCH (09:29)
[2018-10-21] MEDS: COLACE PO SCH ×3 (09:29→09:45)
[2018-10-21] MEDS: NORVASC PO SCH (09:29)
[2018-10-21] MEDS: SENOKOT PO SCH ×2 (09:29→09:46)
--- NOTE | 2018-10-21 21:36 | PROVIDER PROGRESS NOTE ---
Progress Note SUBJECTIVE: No acute overnight events. Afebrile. No CP, SOB, diarrhea, rectal bleeding, melena. He is tolerating PO intake. He continues to have RUQ pain on palpation. OBJECTIVE: Last Vital Signs Temp 99.2 F 10/21/18 07:30 Pulse 76 10/21/18 07:30 Resp 18 10/21/18 07:30 BP 110/50 10/21/18 07:30 Pulse Ox 89 L 10/21/18 07:30 Height 5 ft 9 in Weight 239 lb GEN: awake, alert, NAD HEENT: anicteric, MMM NECK: supple, no jvd CV: RRR, no murmurs PULM: CTAB ABD: ND, NABS, TTP RUQ, no rebound or guarding EXT: no cce NEURO: nonfocal EGD 10/20/2018 POSTOPERATIVE DIAGNOSES: 1. Candidal esophagitis in the proximal and distal esophagus. 2. Z-line was visualized at 45 cm. 3. Evidence of portal hypertensive gastropathy. 4. Erosive Gastritis in the body and antrum; Normal fundus, cardia, incisura on retroflexion. 5. Normal duodenal bulb and second portion. A/P: Mr. Lakhwinder Felix is a 63 year old man with cryptogenic cirrhosis, IDDM2, prior CVAx2 with residual RLE weakness, chronic back pain, HTN, HLD, CAD s/p stents who presented with several weeks of RUQ burning pain radiating to epigastrum and RLQ. Initial CT was concerning for acute cholecystitis. However, US and HIDA were negative. EGD showed jeanette esophagitis. and erosive gastritis. His abdominal pain appears to be functional in etiology. #Abdominal pain: likely functional: consider Elavil; continue PPI #Gastritis: continue PPI; avoid NSAIDs; stop carafate #Jeanette esophagitis: transition liquid diflucan to oral pills and continue for 21 days #Constipation: continue bowel regimen Follow-up with GI in 2-4 weeks.
--- NOTE | 2018-11-12 19:55 | DISCHARGE SUMMARY ---
ADMISSION DATE: 10/15/2018 DISCHARGE DATE: 10/21/2018 FINAL DISCHARGE DIAGNOSES: 1. Jeanette esophagitis. 2. Portal hypertensive gastropathy. 3. Erosive gastritis. 4. Liver cirrhosis. 5. Thrombocytopenia. 6. Possible cholecystitis. 7. Diabetes mellitus type 2. 8. Hypertension. 9. Dyslipidemia. CONSULTATIONS: 1. GI consultation with Dr. García. 2. General Surgery consultation with Dr. Whitaker. PROCEDURES: EGD performed on October 20, 2018 that revealed Jeanette esophagitis, erosive gastritis, and portal hypertensive gastropathy. HOSPITAL COURSE: Mr. Felix is a 63-year-old male with a history of liver cirrhosis, hypertension, obesity, and diabetes who presented to the ER with persistent abdominal pain. On admission a CT of the abdomen and pelvis was done that revealed inflammatory stranding around the gallbladder suspicious for cholecystitis as well as liver cirrhosis and splenomegaly. The patient was admitted to the hospitalist service, and General Surgery was consulted. It was recommended by the general surgeon to monitor the patient closely. The patient underwent an abdominal ultrasound that revealed no evidence of gallbladder wall thickening or pericholecystic fluid and no gallstones were seen either. This was then followed by a HIDA scan which revealed a normal gallbladder ejection fraction. In light of these findings, the general surgeon decided to just monitor the patient. GI was consulted due to the patient's persistent abdominal pain. The patient does have a known history of liver cirrhosis and splenomegaly. The patient was started on a proton pump inhibitor and taken for EGD. The EGD revealed erosive gastritis and Jeanette esophagitis. The patient was started on Diflucan for the Jeanette infection. The patient continued to improve clinically and was cleared for discharge home. DISCHARGE MEDICATIONS: 1. Norvasc 10 mg p.o. daily. 2. Aspirin 81 mg p.o. daily. 3. Diflucan 200 mg p.o. daily. 4. Colace 100 mg p.o. twice a day p.r.n. 5. Plavix 75 mg p.o. every morning. 6. Glargine 35 units subcutaneous at bedtime. 7. Glargine 30 units subcutaneous in the morning. 8. Omeprazole 40 mg p.o. twice a day. 9. MiraLAX 17 g oral daily p.r.n. 10. Pravachol 40 mg p.o. at bedtime. 11. Altace 10 mg p.o. twice a day. 12. Carafate 1 g oral every 6 hours. DISCHARGE DIET: 1800 ADA diet; low-sodium diet. ACTIVITY: As tolerated. FOLLOW-UP INSTRUCTIONS: The patient has been advised to follow up with Dr. Melchor on November 21, 2018 at 1:30 p.m. The patient will need to follow up with Dr. Whitaker within 2 weeks of discharge. cc: Rosio De La Torre MD
== END 2018-10-21 10:15 | disposition home or self-care (01) | DRG 392 ==
LOC: ED 10:00 → 4N 15:31 → SUATTDRO 15:31
PROVIDERS: ATTEND Internal Medicine
CPT/HCPCS: 74019; 74020; 74022; 74177; 76705; 78227; 80048; 80053; 80074; 80076; 81001; 81256; 82103; 82390; 82948; 83036; 83516; 85025; 85027; 85576; 85610; 85730; 86038; 86039; 86235; 86255; 86850; 86900; 86901; 88305; 88312; 93005; 93010; 96361; 96365; 96375; 96376; 99285; A9270; A9537; J1170; J2175; J2370; J2405; J2543; J2550; J7030; Q9967; XXXXX